=== PATIENT | female | born 1960 | race Caucasian/White ===

== ENCOUNTER → 2017-10-27 | Day surgery (SDC) | payer OTHER ==
[~2017-10-27] VITALS: Ht 160 cm; Wt 79.4 kg
[~2017-10-27] MED LIST: MOTRIN800 MG PO; PERCOCET 325 MG1 TA2 PO
--- NOTE | 2017-10-27 12:35 | Operative Report ---
Operative/Inv Procedure Report Surgery Date: 10/27/17 Name of Procedure: Transanal excision of rectal polyp 2 submucosal level Pre-Operative Diagnosis: Rectal polyp Post-Operative Diagnosis: Rectal polyp Estimated Blood Loss: scant Surgeon/Anchor Operator: Chris Hernandez Jr., DO Anesthesia: local monitored anesthesi, block Monitors: Per routine Drains: none Specimens: Rectal polyp Complications: None Condition: Good Operative Indication: This is a 56-year-old female with history of colon adenomas. Recently presented to my office for rectal pain. On exam she was noted to have a polyp in the low rectum. Polyp here to be an adenoma she was scheduled for transanal excision Operative/Procedure Note Note: On the morning before her procedure she did a Fleet's enema. She presented to [facility] and was taken to the operating room. In the operating room she 's placed in supine position and IV sedation was initiated. Once patient was comfortable she was converted to lithotomy position in [facility]. At this point the perineum was prepped and draped in usual fashion. A block was performed using 1% lidocaine with epinephrine a total of 30 mL was injected. I gently dilated the anal canal and then placed a Fansler operating proctoscope. I inspected the rectum and anal canal quadrant by quadrant. The lesion was in the posterior midline about 2-3 cm above the dentate line. The lesion was sessile and regular similarly 2 cm in diameter by 1 centimeter. The lesion was grasped with forceps and excised using electrocautery making sure to excise a ring of normal appearing tissue around the polyp. The base was then fulgurated. Procedure was concluded. The retractor was removed the perineum was cleansed and dried and a bulky dressing was applied. She was converted to supine tolerated the procedure well and was taken to recovery in good condition. At the end of this operational needle sponges and Schmidts were accounted for. Findings: Polyp low rectum consistent with adenoma Discharge Disposition: PACU CC: Juliette ADAMS,Chris Reese
== END ==
LOC: STS 01:56
DX: D12.8 Benign neoplasm of rectum (principal); Z86.010 Personal history of colon polyps
CPT/HCPCS: J2250